=== PATIENT | male | born 1985 | race Caucasian/White ===

== ENCOUNTER 2016-12-02 19:00 | Emergency (ER) | payer OTHER ==
[~2016-12-02] VITALS: Ht 170.2 cm; Wt 75.0 kg
[2016-12-02 19:05] VITALS: BP 130/60; PULSE 92; RESP 16; TEMP 99.4; O2SAT 97
[2016-12-02] MEDS ORDERED: AMOX500C PO (19:20)
[2016-12-02] MEDS ORDERED: DICL75TA PO (19:20)
[2016-12-02] MEDS ORDERED: CYCL1TAB29 PO (19:20)
--- NOTE | 2016-12-02 19:25 | PD ---
HPI Chief Complaint: Back/ Neck Pain or Injury Time Seen by Provider: 19:21 Travel History International Travel<30 days: No Contact w/Intl Traveler<30days: No Traveled to known affect area: No History of Present Illness HPI 31-year-old white male presents to emergency department with complains of pain underneath his left scapula today after he climbed out of his truck. He states that he had a similar episode 2 weeks ago that lasted for about 2 days then resolves spontaneously. He states that this feels like a pulled muscle. He denies any direct trauma. He also states that her last day or 2 he's felt sick. He has had a sore throat, general malaise, swollen glands but denies any fever or chills. No nausea vomiting. No abdominal pain or urinary symptoms. PFSH Past Medical History Medical History: Denies Significant Hx Tetanus Vaccination: < 5 Years Past Surgical History Surgical History: No Previous Surgery Social History Alcohol Use: No Tobacco Use: No Allergies-Medications (Allergen,Severity, Reaction): Coded Allergies: No Known Allergies (Unverified , 12/02/16) Reported Meds & Prescriptions Reported Meds & Active Scripts Active Flexeril (Cyclobenzaprine HCl) 10 Mg Tab 10 Mg PO TID Diclofenac Sodium DR (Diclofenac Sodium) 75 Mg Tabdr 75 Mg PO BID Amoxicillin 500 Mg Cap 500 Mg PO TID Review of Systems Except as stated in HPI: all other systems reviewed are Neg Physical Exam Narrative GENERAL: Well-developed, well-nourished in no apparent distress. Nontoxic appearing. HEAD: Normocephalic, atraumatic. EYES: Pupils equal round and reactive. Extraocular motions intact. No scleral icterus. No injection or drainage. ENT: Nose clear. Throat with erythema, no tonsillar hypertrophy or exudate. Uvula midline. Airway patent. NECK: Trachea midline. Supple, nontender, moves head freely. No central bony tenderness or spasm. CARDIOVASCULAR: Regular rate and rhythm without murmurs, gallops, or rubs. RESPIRATORY: Clear to auscultation. Breath sounds equal bilaterally. No wheezes , rales, or rhonchi. GASTROINTESTINAL: Abdomen soft, non-tender, nondistended. No hepato-splenomegaly , or palpable masses. No guarding. EXTREMITIES: No clubbing, cyanosis, or edema. No joint tenderness. BACK: No central bony tenderness. Patient has left infrascapular myofascial tenderness but has full range of motion without deformity. No flank tenderness. NEUROLOGICAL: Awake, alert and oriented x 3 .Cranial nerves grossly intact. Motor and sensory grossly within normal limits. Normal speech. Data Data Last Documented VS Vital Signs Date Time Temp Pulse Resp B/P Pulse Ox O2 Delivery O2 Flow Rate FiO2 12/02/16 19:05 99.4 92 16 130/60 97 MDM Medical Decision Making Medical Screen Exam Complete: Yes Emergency Medical Condition: Yes Medical Record Reviewed: Yes Differential Diagnosis MDM: High Differential diagnoses: Fracture, sprain, strain, HNP, strep throat, viral syndrome Narrative Course Patient will be treated per clear for possible strep as well as back spasms. Diagnosis Primary Impression: Spasm of back muscles Additional Impression: Acute pharyngitis Qualified Code: J02.9 - Acute pharyngitis, unspecified etiology Patient Instructions: General Instructions Departure Forms: Tests/Procedures, Work Release Special Instructions: No work 2 days. Additional Instructions: Rest. Ice for the next 3 days followed by heat . Saltwater gargles. Chloraseptic [place]. Amoxicillin. Flexeril and Voltaren. Follow-up with a primary care doctor in one week. Return to the ER for emergencies. Med/Other Pt SpecificInfo: Prescription(s) given Scripts Cyclobenzaprine (Flexeril)10 Mg Tab10 Mg PO TID #30 TAB Prov:Wilbur Sosa MD 12/02/[address] 75 Mg Tabdr75 Mg PO BID #20 TAB Prov:Wilbur Sosa MD 12/02/16 Amoxicillin 500 Mg [id number] Mg PO TID #30 CAP Prov:Wilbur Sosa MD 12/02/16 Disposition: 01 DISCHARGE HOME Condition: Stable Amos Cunningham Dec 02, 2016 19:25
== END 2016-12-02 20:26 | disposition home or self-care (01) ==
LOC: NEPD 19:00
DX: M62.830 Muscle spasm of back (principal); J02.9 Acute pharyngitis, unspecified
CPT/HCPCS: 99284